=== PATIENT | female | born 1970 | race Caucasian/White ===

== ENCOUNTER 2018-06-09 08:08 | Day surgery (SDC) | payer OTHER ==
[2018-05-25 11:59] VITALS: BMI 22.6
[2018-06-09] MEDS ORDERED: PROPOFOL 20 ML ONE ×4 (09:44→10:26)
[2018-06-09] MEDS ORDERED: SUCCINYLCHOLINE CHLORIDE 200 MG/10 ML VIAL ONE (10:26)
[2018-06-09] MEDS ORDERED: MIDAZOLAM HCL 2 MG/2 ML SINGLE DOSE VIAL ONE (10:26)
[2018-06-09] MEDS ORDERED: BUPIVACAINE HCL/EPINEPHRINE/PF 30 ML VIAL IJ ONE (10:31)
[2018-06-09] MEDS ORDERED: EPINEPHrine 1:1,000 1 MG/1 ML - 30ML VIAL (INJECTION) ONE (10:32)
[2018-06-09] MEDS ORDERED: PROMETHAZINE HCL 25 MG/1 ML VIAL IVPB PRN (11:15)
[2018-06-09] MEDS ORDERED: oxyCODONE HCL 5 MG TABLET PO PRN ×2 (11:15)
[2018-06-09] MEDS ORDERED: ONDANSETRON 4 MG/2 ML VIAL IVPUSH PRN (11:15)
--- NOTE | 2018-06-09 11:23 | OP ---
Operative Note - Note: Operative Date: 06/09/18 Pre-Operative Diagnosis: left knee MMT, MFC cartilage defect Operation: LKA, microfracture, meniscus repair Post-Operative Diagnosis: Same as Pre-op Surgeon: Adrian Green Anesthesia: General
--- NOTE | 2018-06-09 11:23 | DS ---
Physical Examination Vital Signs: Vital Signs Temperature 97.5 F L 06/09/18 08:51 Pulse Rate 60 06/09/18 08:51 Respiratory Rate 16 06/09/18 08:51 Blood Pressure 118/71 06/09/18 08:51 O2 Sat by Pulse Oximetry (%) 99 06/09/18 08:58 Discharge Summary Reason For Visit: MEDIAL MENISCAL TEAR LEFT KNEE Condition: Good - Instructions Diet, Activity, Other Instructions: Post Operative Instructions: Knee Arthroscopy Dr Adrian Green 1. Pain following an arthroscopy is variable. Some patients will have more pain than others. You have been provided with a prescription for medication that contains a narcotic. You are not allowed to drive while on this medication. You should NOT take Tylenol (Acetaminophen) when taking the pain medication ( it will result in an overdose). Feel free to take medications such as Ibuprofen or Naprosyn in addition to the pain medicine if you do not have any problems with the NSAID class of medications. 2. You should remove the bandages and shower in 24 hours unless directed otherwise. You are not allowed to bathe or go swimming until the sutures are removed. Put band-aids on the sutures after your shower and do not put any creams or lotions over the incisions. 3. You are allowed to put all your weight on the leg and bend your knee, unless directed otherwise. 4. Apply ice to the knee for 15 min every hour or so. You may continue this for as many days as you like. 5. Please call the office to schedule a visit to have your sutures removed. 6. If for any reason you believe you may have an infection or are concerned, please feel free to call me. I can be reached through our office number 24 hours a day. 7. Please call our office with any questions; we will review the surgical findings during your post operative visit. Disposition: HOME - Home Medications Comprehensive Discharge Medication List: Ambulatory Orders Meloxicam 15 mg PO BID 05/25/18
[2018-06-09] MEDS ORDERED: oxyCODONE HCL 5 MG TABLET ONE (12:51)
[2018-06-09 13:05] VITALS: TEMP 98
[2018-06-09 13:25] VITALS: PULSE 71
[2018-06-09 15:36] VITALS: BP 110/68
--- NOTE | 2018-06-14 16:06 | PATH ---
Surgical Pathology Report Patient Name: COLIN IGLESIAS [facility]. Rec. #: [id number] /Age/Gender: 1970 (Age: 47) / F Account: [id number] Location: [facility] AMBULATORY Taken: 06/09/2018 Received: 06/09/2018 Reported: 06/14/2018 Physicians: Adrian Green M.D. Specimen(s) Received LEFT KNEE SHAVINGS Clinical History Medial meniscal tear left knee Final Diagnosis KNEE , LEFT, ARTHROSCOPIC SHAVINGS: FIBROSYNOVIAL TISSUE AND CARTILAGE. Electronically Signed Kathryn Flores M.D. Gross Description Received in formalin labeled "left knee shavings," is a 2.5 x 1.5 x 0.3 cm aggregate iyer-yellow soft tissue fragments. The formalin is filtered and the specimen is entirely submitted in one cassette. 06/13/2018 saudi06/13/2018
== END 2018-06-09 13:50 | disposition home or self-care (01) ==
LOC: FASU 08:08
PROVIDERS: ATTEND Orthopaedic Surgery
PROC: 0SBC4ZZ Excision of Right Knee Joint, Percutaneous Endoscopic Approach (ICD-10-PCS; 2018-06-09)
PROC: 0SBD4ZZ Excision of Left Knee Joint, Percutaneous Endoscopic Approach (ICD-10-PCS; principal; 2018-06-09 10:46)
DX: S83.242A Other tear of medial meniscus, current injury, left knee, initial encounter (principal); M24.10 Other articular cartilage disorders, unspecified site; X58.XXXA Exposure to other specified factors, initial encounter; Y93.9 Activity, unspecified; Y92.9 Unspecified place or not applicable
CPT/HCPCS: 88304-TC; 94760